=== PATIENT | male | born 1980 | race Caucasian/White ===

== ENCOUNTER 2023-08-04 19:07 | Emergency (ER) | payer BC, SELFPAY ==
--- NOTE | 2023-08-04 19:10 | ED.WOUNDLAC ---
HPI - Wound/Laceration General Chief Complaint: Wound/Laceration Stated Complaint: Laceration to Finger Time Seen by Provider: 08/04/23 19:09 History of Present Illness HPI narrative: PATIENT HERE WITH A LACERATION TO FINGER. BLEEDING CONTROLLED , UNSURE OF LAST TDAP. PATIENT STATES HE WAS AT AN EXPRESS CARE FOR EVALUAITON OF LACERATION AND WAS ADVISED TO GO TO AN EXPRESS CARE THAT WAS ABLE TO GIVE TDAP INJECTIONS. Related Data Home Medications Medication Instructions Recorded Confirmed albuterol sulfate 90 mcg/actuation 2 puff inhalation Q4-6H PRN 08/04/23 08/04/23 aerosol inhaler Shortness Of Breath Or Wheezing amlodipine 10 mg tablet 10 mg PO DAILY 08/04/23 08/04/23 escitalopram oxalate 20 mg tablet 20 mg PO DAILY 08/04/23 08/04/23 metoprolol succinate 50 mg 50 mg PO DAILY 08/04/23 08/04/23 tablet,extended release 24 hr omeprazole 20 mg capsule,delayed 20 mg PO DAILY 08/04/23 08/04/23 release trazodone 50 mg tablet 50 mg PO DAILY 08/04/23 08/04/23 Allergies Allergy/AdvReac Type Severity Reaction Status Date / Time No Known Allergies Allergy Verified 08/04/23 19:30 Review of Systems Review of Systems: CONSTITUTIONAL: DENIES FEVER, CHILLS, OR SWEATS. EYES: DENIES VISUAL CHANGES, REDNESS, OR DISCHARGE. ENT: DENIES RHINORRHEA, CONGESTION, SORE THROAT, OR OTALGIA. CARDIOVASCULAR: DENIES CHEST PAIN, PALPITATIONS, OR EDEMA. RESPIRATORY: DENIES COUGH OR DYSPNEA. GASTROINTESTINAL: DENIES ABDOMINAL PAIN, NAUSEA, VOMITING, OR DIARRHEA. GENITOURINARY: DENIES DYSURIA OR HEMATURIA. SKIN: DENIES RASH OR ITCHING. MUSCULOSKELETAL: DENIES BACK PAIN, JOINT PAIN, OR MYALGIA. NEUROLOGIC: DENIES HEADACHE, NUMBNESS, OR WEAKNESS. PSYCHIATRIC: DENIES ANXIETY OR DEPRESSION. PMFSH Comments AT TIME OF SIGNATURE, AGREE WITH NURSING PAST MEDICAL, SURGICAL, SOCIAL AND FAMILY HISTORY. THERE IS NO RELEVANT FAMILY HISTORY PERTINENT TO THE PRESENTING COMPLAINT Exam Narrative: GENERAL: WELL-APPEARING, WELL-NOURISHED, AND IN NO ACUTE DISTRESS. HEAD: NORMOCEPHALIC, ATRAUMATIC. EYES: PERRLA AND EOMI. ENT: NARES CLEAR, NO RHINORRHEA OR EPISTAXIS. MUCOUS MEMBRANES MOIST. NECK: SUPPLE. CHEST: CLEAR TO AUSCULTATION. NO RESPIRATORY DISTRESS. HEART: REGULAR RATE AND RHYTHM. NO MURMUR HEARD. NORMAL PERIPHERAL PULSES. ABDOMEN: SOFT, NONTENDER, NONDISTENDED, NORMAL ACTIVE BOWEL SOUNDS. EXTREMITIES: NORMAL RANGE OF MOTION. NO EDEMA. HAND EXAM - SKIN INTACT, NO LACERATION, NO SWELLING, NO ERYTHEMA, NORMAL DIGIT CASCADE WITH FLEXION OF FINGERS, MEDIAN NERVE, ULNAR NERVE, RADIAL NERVE IS INTACT. NORMAL SENSATION OF EACH SIDE OF EACH FINGER, CAN PERFORM `OK? SIGN, `CROSS OVER FINGER TEST OF INDEX AND MIDDLE FINGERS? AND `THUMBS UP? SIGN, NORMAL THUMB OPPOSITION, NO SCISSORING. GOOD CAPILLARY REFILL AND RADIAL PULSE. NORMAL FLEXION AND EXTENSION OF FINGERS AND WRIST. NORMAL SUPINATION AT WRIST. NORMAL FOREARM AND ELBOW EXAM. SKIN: WARM, DRY, NO RASH. NEURO: NO FOCAL DEFICITS. ALERT AND ORIENTED X3. ZONIA COMA SCALE EYE OPENING: SPONTANEOUS 4 ZONIA COMA SCALE MOTOR: OBEYS COMMANDS 6 ZONIA COMA SCALE VERBAL: ORIENTED 5 ZONIA COMA SCALE TOTAL 15 Course Course Level of Care: Express Care Visit Vital Signs Vital signs: Vital Signs Temperature 36.3 C L 08/04/23 19:18 Pulse Rate 93 08/04/23 19:18 Respiratory Rate 18 08/04/23 19:18 Blood Pressure 137/75 08/04/23 19:18 Pulse Oximetry 96 08/04/23 19:18 Oxygen Delivery Room Air 08/04/23 19:18 Temperature 36.3 C L 08/04/23 19:18 Pulse Rate 93 08/04/23 19:18 Respiratory Rate 18 08/04/23 19:18 Blood Pressure 137/75 08/04/23 19:18 Pulse Oximetry 96 08/04/23 19:18 Oxygen Delivery Room Air 08/04/23 19:18 WOUND EXTENSIVELY IRRIGATED WITH NORMAL SALINE Procedures Laceration Laceration 1: Date: 08/04/23 Time: 19:20 Site: hand Side (If applicable): left (LEFT PALM ) Size (cm): 3.5 Description: linear (
[2023-08-04 19:18] VITALS: BP 137/75; PULSE 93; RESP 18; TEMP 36.3; O2SAT 96
[2023-08-04] MEDS: TETANUS,DIPHTHERIA,AC PERTUSSIS ADULT (0.5 ML) BOOSTRIX IM (19:20)
== END 2023-08-04 19:42 | disposition home or self-care (01) ==
PROVIDERS: Emergency Provider Nurse Practitioner Family
DX: S61.218A Laceration without foreign body of other finger without damage to nail, initial encounter (principal); T14.90XA Injury, unspecified, initial encounter; Z23 Encounter for immunization
CPT/HCPCS: 29130; 90471; 90715; 99213; G0463